=== PATIENT | male | born 1965 | race Caucasian/White ===

== ENCOUNTER 2017-07-02 04:18 | Emergency (ER) | payer MEDICAID ==
[2017-07-02 04:23] VITALS: PULSE 67
[2017-07-02] MEDS ORDERED: IBUPROFEN 200 MG TAB PO ONE (04:44)
[2017-07-02] MEDS ORDERED: ACETAMINOPHEN 500 MG TAB PO ONE (04:44)
--- NOTE | 2017-07-02 06:18 | EDPHY ---
H & P Stated Complaint: FELL HIT FACE ON THE NIGHT STAND Time Seen by Provider: 07/02/17 04:26 HPI/ROS: HPI: The patient presents with facial laceration which occurred just prior to arrival. He had gotten up at night to use the bathroom and when he was walking back he believes he tripped on a pillow, falling forward and landing on a night stand. He did not lose consciousness but had bleeding from his face immediately. He noticed his nose was out of place in so he tried to reduce it. He had bleeding from both of his nostrils and a facial laceration. His teeth do not feel abnormal. REVIEW OF SYSTEMS Constitutional: No fever, no chills. Skin: No rashes. Neurological: No headache. PMHx: History of hypothyroidism TRAUMA PHYSICAL General Appearance: Alert, no distress Head: There is a 2 cm laceration from his right inferior nostril to the frenum Eyes: Pupils equal, round, reactive ENT, Mouth: Obvious deformity of nasal bridge, no septal hematoma, there is ecchymoses to his inner upper lip with large amount of edema Neck: Non- tender, trachea midline Respiratory: Breathing comfortably Skin: As above Extremities: Non-tender, full range of motion Neurological: A&Ox3, GCS=15 Source: Patient Exam Limitations: No limitations - Personal History Current Tetanus/Diphtheria Vaccine: Yes Current Tetanus Diphtheria and Acellular Pertussis (TDAP): Yes - Medical/Surgical History Hx Asthma: No Hx Chronic Respiratory Disease: No Hx Diabetes: No Hx Cardiac Disease: No Hx Renal Disease: Yes Hx Cirrhosis: No Hx Alcoholism: No Hx HIV/AIDS: No Hx Splenectomy or Spleen Trauma: No Other PMH: PSHx: L knee ACL. PMHx: hypothyroidism, adrenal fatigue, kidney stone - Social History Smoking Status: Never smoked Constitutional: Initial Vital Signs Temperature (C) 36.6 C 07/02/17 04:21 Heart Rate 67 07/02/17 04:21 Respiratory Rate 18 07/02/17 04:21 Blood Pressure 134/78 H 07/02/17 04:21 O2 Sat (%) 96 07/02/17 04:21 O2 Delivery Mode Room Air Allergies/Adverse Reactions: Penicillins Allergy (Verified 12/20/15 13:52) Sulfa (Sulfonamide Antibiotics) Allergy (Verified 12/20/15 13:52) Home Medications: Medication Instructions Recorded THYROID 12/20/15 Testosterone 12/20/15 Medical Decision Making Procedures: LACERATION REPAIR Procedure: Laceration repair. Verbal consent was obtained from the patient. The linear 2 cm laceration on the right inferior nostril extending to the upper lip was anesthetized using the bupivacaine with epinephrine. The wound was scrubbed, draped and explored to its base with a gloved finger. There were no deep structures involved. No tendon injury was identified. . The wound was repaired with 5 sutures of 5.0 nylon, simple interrupted. The wound repair was simple. The procedure was performed by myself. Differential Diagnosis: This is a 51-year-old man who had a fall from standing, walking back from the bathroom in the dark, tripping on a pillow and landing on the nightstand. As he has obvious deformity to his nose concerning for nasal fracture. He has a laceration of his upper lip not involving the vermilion border. His midface is stable, he does not have any dental injuries. In the emergency department, be will repair his laceration. He will need to have sutures out in 5 days which can be done at [facility] or in the emergency department. I feel he should have follow-up with ENT for presumed nasal fracture, he notices he has difficulty breathing through his right nostril. He does not appear to have any other facial fractures. He will be discharged in good condition. - Data Points Medications Given: Discontinued Medications Acetaminophen (Tylenol) 1,000 mg PO EDNOW ONE Stop: 07/02/17 04:45 Last Admin: 07/02/17 05:10 Dose: 1,000 mg Ibuprofen (Motrin) 400 mg PO EDNOW ONE Stop: 07/02/17 04:45 Last Admin: 07/02/17 05:10 Dose: 400 mg Departure - Departure Disposition: Home, Routine, Self-Care Clinical Impression: Laceration of frenum of upper lip Qualifiers: Encounter type: initial encounter Qualified Code(s): S01.511A - Laceration without foreign body of lip, initial encounter Nasal fracture Qualifiers: Encounter type: initial encounter Fracture type: closed Qualified Code(s): S02.2XXA - Fracture of nasal bones, initial encounter for closed fracture Condition: Good Instructions: Care For Your Stitches (ED), Nasal Fracture (ED), Facial Laceration (ED) Additional Instructions: Your sutures should be removed in 5 days. You can return to the emergency room for this or you can follow up with the [facility] doctor. Please use plenty of ice on your face Referrals: KARON MANCUSO [Primary Care Provider] - As per Instructions Gary Gardner MD [Medical Doctor] - As per Instructions
[2017-07-02 06:42] VITALS: BP 96/53; RESP 16; TEMP 98.4; O2SAT 94
== END 2017-07-02 06:40 | disposition home or self-care (01) ==
PROC: 0CQ0XZZ Repair Upper Lip, External Approach (ICD-10-PCS; principal; 2017-07-02)
DX: S02.2XXA Fracture of nasal bones, initial encounter for closed fracture (principal); S01.511A Laceration without foreign body of lip, initial encounter; W01.198A Fall on same level from slipping, tripping and stumbling with subsequent striking against other object, initial encounter